=== PATIENT | female | born 1970 | race Caucasian/White ===

== ENCOUNTER 2019-07-15 13:03 | Observation (INO) ==
[2019-07-15] MEDS ORDERED: KETOROLAC 30 MG/ML VIAL IV STA (14:08)
[2019-07-15] MEDS ORDERED: DiphenhydrAMINE HCL 50 MG/ML VIAL IV STA (14:08)
[2019-07-15] MEDS ORDERED: PROCHLORPERAZINE 5 MG/ML 2 ML VIAL IV STA (14:08)
[2019-07-15] MEDS ORDERED: SODIUM CHLORIDE 0.9% 1000ML 1,000 ML IV SCH (14:15)
[2019-07-15 15:09] LABS: Basophils # (auto) 0.04 K/uL (0-0.2); Basophils % (auto) 0.5 %; Eosinophils # (auto) 0.11 K/uL (0-0.5); Eosinophils % (auto) 1.3 %; Hematocrit (blood only) 47.1 % (37-47); Hemoglobin 16.1 g/dL (12.0-16.0); Immature Granulocytes # (auto) 0.03 K/uL (0.00-0.02); Immature Granulocytes % (auto) 0.4 %; Lymphocytes # (auto) 2.46 K/uL (1.2-3.4); Lymphocytes % (auto) 29.7 %; Mean Corpuscular Hgb Conc 34.2 g/dL (32-36); Mean Corpuscular Volume 87.9 fL (80-100); Mean Platelet Volume 10.7 fL (7.4-10.4); Monocytes # (auto) 0.39 K/uL (0.11-0.59); Monocytes % (auto) 4.7 %; Neutrophils # (auto) 5.24 K/uL (1.4-6.5); Neutrophils % (auto) 63.4 %; Platelet Count 310 K/uL (130-400); RDW Coefficient of Variation 12.2 % (11.5-14.5); RDW Standard Deviation 39.1 fL (36.4-46.3); Red Blood Count 5.36 M/uL (4.2-5.4); White Blood Count 8.27 K/uL (4.8-10.8)
[2019-07-15 15:26] LABS: BUN Creatinine Ratio 16.8 (10-20); Calcium 9.7 mg/dl (8.5-10.1); Creatinine Clr Calc Pharmacy 70.4 ml/min; Est GFR (African American) 67.5; Est GFR (Non-African American) 58.3; Potassium 3.6 mmol/L (3.5-5.1)
--- NOTE | 2019-07-15 15:49 | CT Scan Report ---
CT SCAN OF THE BRAIN WITHOUT IV CONTRAST CLINICAL HISTORY: Headache. COMPARISON STUDY: No priors. TECHNIQUE: Unenhanced axial CT scan of the brain is performed from the vertex to the skull base. A d ose lowering technique was utilized adhering to the principles of ALARA. CT DOSE: 614.27 mGy.cm FINDINGS: Brain parenchyma: The brain parenchyma is normal in appearance. There is no hemorrhage, mass effect, or evidence of acute territorial ischemia by CT criteria. Jain-white matter differentiation is preser dino. No extra-axial fluid collection is seen. Ventricles, sulci, cisterns: Normal in configuration. Intracranial vasculature: The visualized intracranial vasculature at the skull base is normal in appe arance. Calvarium: Unremarkable. Sinuses and mastoids: The visualized paranasal sinuses are clear. The mastoid air cells are well pneu matized. Orbits: The bony orbits are grossly intact. IMPRESSION: No acute intracranial abnormality. ACT 112: Negative or not required by law. Electronically signed by: Vincent Kay M.D. 07/15/2019 3:48 PM
[2019-07-15] MEDS ORDERED: MAGNESIUM SULFATE / D5W 1 GM/100 ML BAG IV ONE (16:57)
[2019-07-15] MEDS ORDERED: ACETAMINOPHEN 1,000 MG/100 ML VIAL IV STA (16:59)
[2019-07-15 18:17] LABS: Pregnancy Test, Urine Negative (Negative)
[2019-07-15] MEDS ORDERED: LORazepam 0.5 MG/1 ML VIAL IV STA (18:44)
--- NOTE | 2019-07-15 19:32 | Emergency Department Note ---
Entered by Melida Moyer acting as a scribe for Chriss Byrd DO History of Present Illness General Chief complaint: Headache Stated complaint: EXTREME HEADACHE; HIGH BP History of Present Illness Onset (ago): day(s) 5 Location: head Severity: similar to prior episodes Pain Consistency: + constant Maximum Pain Intensity: 8 Current Pain Intensity: 8 Quality: + constant Relieved By: + none Associated symptoms: + denies other symptoms (denies numbness, tingling, runny nose), + headaches and + other (blurry vision); no cough, no fever/chills and no weakness The patient is a 48 year old female who presents to the Emergency Room with complaints of headache that began on Friday, 5 days ago. She states that her headache starts at the back of her neck and comes up through her head and to her eyes. The patient has a history of intracranial hypertension. She takes Topamax and diamox without improvement. She denies weakness, numbness, or tinging. She complains of intermittent blurry vision in her right eye that started a few days ago. Her last severe headache episode was about a year and a half ago. The patient denies runny nose, cough, and fever. Home Medications Home Medications Medication Instructions Recorded Confirmed Type Diamox 1,000 mg PO BID 07/15/19 07/15/19 History ibuprofen-diphenhydramine cit 2 cap PO HS PRN 07/15/19 07/15/19 History [Advil PM] multivitamin 1 tab PO DAILY 07/15/19 07/15/19 History topiramate [Topamax] 25 mg PO QAM 07/15/19 07/15/19 History topiramate [Topamax] 75 mg PO HS 07/15/19 07/15/19 History Allergies Allergy/AdvReac Type Severity Reaction Status Date / Time No Known Allergies Allergy Unverified 07/15/19 15:50 Past Med/Surg History Medical History Intracranial hypertension Surgical History No pertinent past surgical history Social History Preferred Language: Trinidadian Feels Safe at Home: Yes Smoking Status: Never smoker Review of Systems See HPI for pertinent positives & negatives. and A total of 10 systems reviewed and were otherwise negative Physical Exam Vital Signs Vital Signs - 24 hr 07/15/19 13:23 07/15/19 13:51 07/15/19 13:52 Temperature 36.9 C Temperature Source Oral Pulse Rate 79 81 Pulse Rate [Apical] 80 Pulse Rate from SpO2 Sensor 81 Respiratory Rate 18 17 20 Respiratory Effort / Characteristics Non-Labored Spontaneous Non-Labored Spontaneous Respiratory Depth Normal Normal Respiratory Pattern Regular Blood Pressure 131/96 140/92 Blood Pressure [Right Arm] 140/92 Blood Pressure Mean 107 111 Blood Pressure Mean [Right Arm] 108 Blood Pressure Position Sitting Pulse Oximetry 94 97 96 Oxygen Delivery Method Room Air Room Air Sepsis Recent Fever Within 48 Hours No Sepsis New/Unexplained Change in Mental Status No Sepsis Action Taken by Nursing No Action Required 07/15/19 13:54 07/15/19 14:00 07/15/19 14:01 Temperature Temperature Source Pulse Rate 79 83 86 Pulse Rate [Apical] Pulse Rate from SpO2 Sensor 80 83 87 Respiratory Rate 15 24 19 Respiratory Effort / Characteristics Respiratory Depth Respiratory Pattern Blood Pressure 162/100 H Blood Pressure [Right Arm] Blood Pressure Mean 121 Blood Pressure Mean [Right Arm] Blood Pressure Position Pulse Oximetry 96 96 96 Oxygen Delivery Method Sepsis Recent Fever Within 48 Hours Sepsis New/Unexplained Change in Mental Status Sepsis Action Taken by Nursing 07/15/19 14:30 07/15/19 15:00 07/15/19 15:17 Temperature Temperature Source Pulse Rate 74 76 82 Pulse Rate [Apical] Pulse Rate from SpO2 Sensor Respiratory Rate 15 14 23 Respiratory Effort / Characteristics Respiratory Depth Respiratory Pattern Blood Pressure 134/98 Blood Pressure [Right Arm] Blood Pressure Mean 115 Blood Pressure Mean [Right Arm] Blood Pressure Position Pulse Oximetry Oxygen Delivery Method Sepsis Recent Fever Within 48 Hours Sepsis New/Unexplained Change in Mental Status Sepsis Action Taken by Nursing 07/15/19 15:19 07/15/19 15:30 07/15/19 15:31 Temperature Temperature Source Pulse Rate 74 76 Pulse Rate [Apical] 86 Pulse Rate from SpO2 Sensor Respiratory Rate 18 15 13 Respiratory Effort / Characteristics Non-Labored Respiratory Depth Normal Respiratory Pattern Blood Pressure 126/93 Blood Pressure [Right Arm] 134/98 Blood Pressure Mean 101 Blood Pressure Mean [Right Arm] 110 Blood Pressure Position Pulse Oximetry 95 Oxygen Delivery Method Room Air Sepsis Recent Fever Within 48 Hours Sepsis New/Unexplained Change in Mental Status Sepsis Action Taken by Nursing 07/15/19 15:48 07/15/19 16:00 07/15/19 16:01 Temperature Temperature Source Pulse Rate 71 69 67 Pulse Rate [Apical] Pulse Rate from SpO2 Sensor 71 71 68 Respiratory Rate 16 13 15 Respiratory Effort / Characteristics Respiratory Depth Respiratory Pattern Blood Pressure 115/55 L 110/69 Blood Pressure [Right Arm] Blood Pressure Mean 87 81 Blood Pressure Mean [Right Arm] Blood Pressure Position Pulse Oximetry 93 94 95 Oxygen Delivery Method Sepsis Recent Fever Within 48 Hours Sepsis New/Unexplained Change in Mental Status Sepsis Action Taken by Nursing 07/15/19 16:22 07/15/19 16:30 07/15/19 16:31 Temperature Temperature Source Pulse Rate 85 80 Pulse Rate [Apical] 69 Pulse Rate from SpO2 Sensor 85 78 Respiratory Rate 18 15 19 Respiratory Effort / Characteristics Non-Labored Respiratory Depth Normal Respiratory Pattern Blood Pressure 115/74 Blood Pressure [Right Arm] 110/69 Blood Pressure Mean 84 Blood Pressure Mean [Right Arm] 82 Blood Pressure Position Pulse Oximetry 94 95 96 Oxygen Delivery Method Room Air Sepsis Recent Fever Within 48 Hours Sepsis New/Unexplained Change in Mental Status Sepsis Action Taken by Nursing 07/15/19 17:06 07/15/19 17:11 07/15/19 17:30 Temperature Temperature Source Pulse Rate 75 71 Pulse Rate [Apical] 85 Pulse Rate from SpO2 Sensor Respiratory Rate 17 18 16 Respiratory Effort / Characteristics Respiratory Depth Respiratory Pattern Blood Pressure Blood Pressure [Right Arm] 115/74 Blood Pressure Mean Blood Pressure Mean [Right Arm] 87 Blood Pressure Position Pulse Oximetry 96 Oxygen Delivery Method Room Air Sepsis Recent Fever Within 48 Hours Sepsis New/Unexplained Change in Mental Status Sepsis Action Taken by Nursing 07/15/19 18:00 07/15/19 18:17 07/15/19 19:21 Temperature Temperature Source Pulse Rate 74 71 Pulse Rate [Apical] Pulse Rate from SpO2 Sensor Respiratory Rate 19 14 Respiratory Effort / Characteristics Respiratory Depth Respiratory Pattern Blood Pressure 118/78 Blood Pressure [Right Arm] Blood Pressure Mean 83 Blood Pressure Mean [Right Arm] Blood Pressure Position Pulse Oximetry 96 Oxygen Delivery Method Room Air Room Air Sepsis Recent Fever Within 48 Hours Sepsis New/Unexplained Change in Mental Status Sepsis Action Taken by Nursing GENERAL: Sitting up in bed, wearing gown. alert, well nourished, no distress, non-toxic EYE EXAM: normal conjunctiva, PERRL and EOM's grossly intact OROPHARYNX: no exudate, no erythema, lips, buccal mucosa, and tongue normal and mucous membranes are moist NECK: supple, no nuchal rigidity, no adenopathy, non-tender LUNGS: Clear to auscultation. Normal chest wall mechanics HEART: no murmurs, S1 normal and S2 normal ABDOMEN: abdomen soft, non-tender, normo-active bowel sounds, no masses, no rebound or guarding. BACK: Back is symmetrical on inspection and there is no deformity, no midline tenderness, no CVA tenderness. SKIN: no rashes and no bruising UPPER EXTREMITIES: upper extremities are grossly normal. LOWER EXTREMITIES: No pitting edema. NEURO EXAM: Normal sensorium, cranial nerves II-XII intact, normal speech, no weakness of arms, no weakness of legs. No drift. Finger to nose intact. Gross sensation intact. Heel to camarena intact. Rapid alternating movements of upper extremities intact. Course Course ED COURSE: Vital signs were reviewed and were normal The patients medical record was reviewed The above diagnostic studies were performed and reviewed. ED treatments and interventions as stated above. 1401: The patient was evaluated in room C05. A complete history and physical examination was performed. 1551: I rechecked on the patient, who was still having some pain. 1641: I spoke to Dr. Espitia, neurology, regarding the patient. Wants MRI with contrast, without contrast, and MRB. 1659: I updated the patient and discussed further treatment in the hospital. She confirms that she would be agreeable with staying in the hospital and understands and agrees with the treatment plan. Based on the patients age, coexisting illnesses, exam and lab findings the decision to treat as an inpatient was made. The patient remained stable while under my care. The patient will be evaluated for further management. Administered Medications Discontinued Medications Diphenhydramine HCl (Benadryl) 50 mg IV NOW STA Stop: 07/15/19 14:09 Last Admin: 07/15/19 15:05 Dose: 50 mg Documented by: [id number] Sodium Chloride (Nss 1000ml) 1,000 mls @ 999 mls/hr IV .Q1H1M RL Stop: 07/15/19 15:15 Last Infusion: 07/15/19 16:38 Dose: 0 mls/hr Documented by: [id number] Admin: 07/15/19 15:05 Dose: 999 mls/hr Documented by: [id number] Magnesium Sulfate/Dextrose (Magnesium Sulfate / D5w) 1 gm in 100 mls @ 100 mls/hr IV ONE ONE Stop: 07/15/19 17:56 Last Admin: 07/15/19 18:18 Dose: 100 mls/hr Documented by: [id number] Acetaminophen (Ofirmev) 1,000 mg in 100 mls @ 400 mls/hr IV NOW STA Stop: 07/15/19 17:13 Last Infusion: 07/15/19 18:43 Dose: 0 mls/hr Documented by: [id number] Admin: 07/15/19 18:18 Dose: 400 mls/hr Documented by: [id number] Lorazepam (Ativan) 0.5 mg in 1 mls @ 1 mls/min IV NOW STA Stop: 07/15/19 18:45 Last Admin: 07/15/19 19:02 Dose: 1 mls/min Documented by: [id number] Ketorolac Tromethamine (Toradol) 30 mg IV NOW STA Stop: 07/15/19 14:09 Last Admin: 07/15/19 15:04 Dose: 30 mg Documented by: [id number] Prochlorperazine (Compazine) 10 mg IV NOW STA Stop: 07/15/19 14:09 Last Admin: 07/15/19 15:05 Dose: 10 mg Documented by: [id number] Medical Decision Making Differential Diagnosis Differential diagnosis includes: migraine headache, meningitis, sinusitis, CO exposure, ICH, SAH, infection, tumor, headache, sinus thrombosis, arterial dissection, as well as others were entertained. Medical Records Attestation: I reviewed the patient's medical records. Home Medications Current Medication List: was personally reviewed by me Laboratory Data Attestation: I reviewed the patient's lab results. Result diagrams: 07/15/19 14:54 07/15/19 14:54 Lab Results 07/15/19 07/15/19 07/15/19 Range/Units 13:27 14:54 14:54 WBC 8.27 (4.8-10.8) K/uL RBC 5.36 (4.2-5.4) M/uL Hgb 16.1 H (12.0-16.0) g/dL Hct 47.1 H (37-47) % MCV 87.9 (80-100) fL MCH 30.0 (25-34) pg MCHC 34.2 (32-36) g/dL RDW Std Deviation 39.1 (36.4-46.3) fL RDW Coeff of Lynn 12.2 (11.5-14.5) % Plt Count 310 (130-400) K/uL MPV 10.7 H (7.4-10.4) fL Immature Gran % (Auto) 0.4 % Neut % (Auto) 63.4 % Lymph % (Auto) 29.7 % [place] % (Auto) 4.7 % Eos % (Auto) 1.3 % Baso % (Auto) 0.5 % Immature Gran # (Auto) 0.03 H (0.00-0.02) K/uL Neut # (Auto) 5.24 (1.4-6.5) K/uL Lymph # (Auto) 2.46 (1.2-3.4) K/uL [place] # (Auto) 0.39 (0.11-0.59) K/uL Eos # (Auto) 0.11 (0-0.5) K/uL Baso # (Auto) 0.04 (0-0.2) K/uL Sodium 138 (136-145) mmol/L Potassium 3.6 (3.5-5.1) mmol/L Chloride 109 H (98-107) mmol/L Carbon Dioxide 20 L (21-32) mmol/L Anion Gap 9.0 (3-11) BUN 19 H (7-18) mg/dl Creatinine 1.11 (0.6-1.2) mg/dl Est Cr Clr Drug Dosing 70.4 ml/min Est GFR ( Amer) 67.5 Est GFR (Non-Af Amer) 58.3 BUN/Creatinine Ratio 16.8 (10-20) Glucose 81 (70-99) mg/dl Calcium 9.7 (8.5-10.1) mg/dl Specimen Hemolysis Urine Test Negative (Negative) Imaging Data Radiologist's Impression: Radiology results as stated below per my review and the radiologist's interpretation: CT SCAN OF THE BRAIN WITHOUT IV CONTRAST CLINICAL HISTORY: Headache. COMPARISON STUDY: No priors. TECHNIQUE: Unenhanced axial CT scan of the brain is performed from the vertex to the skull base. A dose lowering technique was utilized adhering to the gabe Douglas. CT DOSE: 614.27 mGy.cm FINDINGS: Brain parenchyma: The brain parenchyma is normal in appearance. There is no hemorrhage, mass effect, or evidence of acute territorial ischemia by CT criteria. Jain-white matter differentiation is preserved. No extra-axial fluid collection is seen. Ventricles, sulci, cisterns: Normal in configuration. Intracranial vasculature: The visualized intracranial vasculature at the skull base is normal in appearance. Calvarium: Unremarkable. Sinuses and mastoids: The visualized paranasal sinuses are clear. The mastoid air cells are well pneumatized. Orbits: The bony orbits are grossly intact. IMPRESSION: No acute intracranial abnormality. ACT 112: Negative or not required by law. Electronically signed by: Vincent Kay M.D. 07/15/2019 3:48 PM Blood Pressure Blood Pressure Findings: Normal blood pressure Blood Pressure Disposition: did not require urgent referral MDM Narrative Patient is a 48-year-old female with a past medical history of intracranial hypertension who follows at L2 to the presents the ER for headache which is been present for the past 5 days severely worsening. She takes 2 g of Diamox and 100 of Topamax a day. Her neuro exam is intact. She does complain of intermittent blurry vision of her right eye. IV was established blood work was obtained. Labs show no significant leukocytosis or anemia. BMP with a CO2 slightly low at 20. was negative. Patient was given IV fluids, Benadryl, Compazine, and Toradol along with magnesium. Limited improvement of her headache. D iscussed with neurology. Recommended MRI with and without contrast as well as MRV. Patient was updated. Also requesting LP. Patient was discussed with the hospitalist after discussion with neurology for additional workup. Impression & Plan Intracranial hypertension, Headache, Blurred vision Discharge Plan Visit Data Chief Complaint: Headache Stated Complaint: EXTREME HEADACHE; HIGH BP ED Provider: Chriss Byrd Discharge Problem: Intracranial hypertension, Headache, Blurred vision Patient Disposition: Admitted As Inpatient Discharge Instructions Interventions: ED Discharge Assessment Last Done: 07/15/19 19:21 Forms Stand Alone Forms: My [facility] Prescriptions Prescriptions: No Action multivitamin Tablet 1 tab PO DAILY RF: 0 topiramate [Topamax] 25 mg Tablet 75 mg PO HS RF: 0 topiramate [Topamax] 25 mg Tablet 25 mg PO QAM RF: 0 ibuprofen-diphenhydramine cit [Advil PM] 200-38 mg Tablet 2 cap PO HS PRN (Reason: Sleep) RF: 0 Diamox 1,000 mg PO BID RF: 0 Referrals Referrals: PCP,NO [Primary Care Provider] - Discharge Problem: Headache Qualifiers: Headache type: unspecified Headache chronicity pattern: unspecified pattern Intractability: intractable Qualified Code(s): R51 - Headache The scribe's documentation has been prepared under my direction and personally reviewed by me in its entirety. I confirm that the note above accurately reflects all work, treatment, procedures, and medical decision making performed by me.
[2019-07-15] MEDS ORDERED: GADOBUTROL 65ML VIAL IV PRN (20:05)
[2019-07-15] MEDS ORDERED: ONDANSETRON INJ 2 MG/ML 2 ML VIAL IV PRN (20:13)
--- NOTE | 2019-07-15 20:16 | Magnetic Resonance Report ---
MR venography head wo con HISTORY: Headache. Blurred vision. Intracranial hypertension. TECHNIQUE: MR venogram of the brain was performed without contrast according to standard departmental protocol. COMPARISON STUDY: Head CT 07/15/2019. FINDINGS: The visualized internal jugular veins, sigmoid sinuses, transverse sinuses, straight sinus, vein of Aime, internal cerebral veins, and superior sagittal vein appear patent. No evidence for du ral venous sinus thrombosis. IMPRESSION: No evidence for dural venous sinus thrombosis. ACT 112: Negative or not required by law. Electronically signed by: Lizandro Mancini M.D. 07/15/2019 8:15 PM
--- NOTE | 2019-07-15 20:22 | Magnetic Resonance Report ---
Brain MRI WITH AND WITHOUT CONTRAST HISTORY: Severe headache. TECHNIQUE: Multiplanar multisequence MRI of the brain was performed both before and after the intrave nous administration of contrast. COMPARISON STUDY: Head CT 07/15/2019. FINDINGS: There are no areas of restricted diffusion to suggest acute infarction. Incidental note is made of a partially empty sella. This could be a normal variant. Otherwise, the midline structures ar e intact.. The paranasal sinuses are clear. The mastoid air cells are clear. The ventricles and sulci are within normal limits for age. There is no mass, hematoma, midline shift. The major vascular flow -voids at the skull base are well maintained. Postcontrast sequences show no areas of abnormal enhanc ement. IMPRESSION: No acute intracranial abnormality. ACT 112: Negative or not required by law. Electronically signed by: Lizandro Mancini M.D. 07/15/2019 8:21 PM
--- NOTE | 2019-07-15 20:29 | History & Physical Report ---
Date of Service July 15, 2019 Assessment & Plan (1) Headache: 28-year-old female with history of idiopathic intracranial hypertension on Diamox and Topamax for medical therapy presenting with 5 days of severe headache, blurry vision in the right eye. Concern for worsening of i ntracranial hypertension versus migraine versus tension headache Observation to medical floor Obtain MRI and MRV Ophthalmology consultation requested LP ordered for tomorrow, opening pressure requested Continue Topamax 75 mg p.o. nightly and 25 mg p.o. every morning Continue Diamox 1000 mg p.o. twice daily Neurology consultation appreciated Present on Admission?: Yes (2) Blurred vision: Most likely secondary to #1 Plan as above Present on Admission?: Yes (3) Intracranial hypertension: Patient presently on Diamox and Topamax. No prior surgical interventions for this issue. -Work-up as above -Ophthalmology neurology consult appreciated Continue Topamax and Diamox Consider Lasix x1 dose F/E/N - NSS x 500mL, monitor electrolytes and replete as needed, low-sodium diet as tolerated Prophylaxislow risk for DVT. IV fluids as above, encourage ambulation Codefull per discussion with patient Dispositionobservation to medical floor History of Present Illness Chief Complaint: Headache Primary Care Provider: NO PCP Sharona Wright is a 48-year-old female with history of idiopathic intracranial hypertension diagnosed 2 years ago presenting with 5 days of severe, persistent headache. Patient reports that she has a headache almost daily. She also has a small blind spot in the right eye which is residual defect from her initial presentation of IIH. Over the last 5 days, however, she reports severe 10 out of 10 constant aching pain located in her posterior neck radiating bandlike to the top of her head and behind her eyes. Blurry vision in her right eye headache wakes her from sleep on occasion. Pain is worse with lying flat. She saw her PCP yesterday and was administered Toradol and she has been taking Advil PM with minimal relief. She denies nausea/vomiting/fevers/chills/trauma. Denies numbness/tingling/weakness. No additional complaints at this time Patient presently following with Dr. Mac of neurology ER course: Tylenol 1 g, Benadryl 50 mg IV, Toradol 30 mg IV, Ativan 0.5 mg IV, magnesium sulfate x1 g IV, prochlorperazine 10 mg IV, normal saline x1 L Neurology contactedrequested MRI with and without contrast, MRV, ophthalmology consultation and lumbar puncture Allergies Allergy/AdvReac Type Severity Reaction Status Date / Time No Known Allergies Allergy Unverified 07/15/19 15:50 Home Medications Home Medications Medication Instructions Recorded Confirmed Type Diamox 1,000 mg PO BID 07/15/19 07/15/19 History ibuprofen-diphenhydramine cit 2 cap PO HS PRN 07/15/19 07/15/19 History [Advil PM] multivitamin 1 tab PO DAILY 07/15/19 07/15/19 History topiramate [Topamax] 25 mg PO QAM 07/15/19 07/15/19 History topiramate [Topamax] 75 mg PO HS 07/15/19 07/15/19 History Past Med/Surg History Medical History (Updated 07/15/19 @ 17:26 by Melida Moyer) Intracranial hypertension Surgical History (Updated 07/15/19 @ 20:15 by Annalisa Boyd DO) History of bladder surgery History of hysterectomy Family History (Updated 07/15/19 @ 20:15 by Annalisa Boyd DO) Other Cancer Diabetes Social History (Updated 07/15/19 @ 20:15 by Annalisa Boyd DO) Preferred Language: Cuban Feels Safe at Home: Yes Smoking Status: Never smoker Hx Alcohol Use: Yes Alcohol Intake Frequency: Holidays/Special Occasions Hx Substance Use: No Review of Systems Review of Systems: All systems reviewed & are unremarkable except as noted in HPI & below Physical Exam Physical Exam: General: patient resting in moderate discomfort but no acute distress,non-toxic in appearance, AA&O x 4 Skin: warm, dry, intact, no rashes or lesions HEENT: NC/AT, PERRL, EOMI, anicteric sclera, conjunctiva without injection, external ear normal to inspection and nontender, nares patent, moist mucus membranes, dentition intact, no oropharyngeal lesions, neck supple, trachea midline, no LAD, no thyromegaly, no JVD, no papilledema appreciated on limited bedside funduscopic exam Heart: +S1/S2, regular, no m/r/g Lungs: equal air entry bilaterally, no rales/rhonchi/wheezes Abd: +BS, soft, NT/ND, no masses/organomegaly/ascites Ext: warm, 2+ pulses in UE/LE bilaterally, no clubbing/cyanosis, vascular hypertrophy of left calf in comparison with right (baseline per patient), no edema Neuro: nonfocal, patient AA&O x 4, speech intact, no facial droop, moving all extremities on command with equal strength 5/5 Results & Data Vital Signs (Past 12 Hours) Vital Signs Temp Pulse Pulse Resp BP BP Pulse Ox 07/15/19 18:17 71 14 118/78 96 07/15/19 18:00 74 19 07/15/19 17:30 71 16 07/15/19 17:11 85 18 115/74 96 07/15/19 17:06 75 17 07/15/19 16:31 80 19 96 07/15/19 16:30 85 15 115/74 95 07/15/19 16:22 69 18 110/69 94 07/15/19 16:01 67 15 95 07/15/19 16:00 69 13 110/69 94 07/15/19 15:48 71 16 115/55 L 93 07/15/19 15:31 76 13 07/15/19 15:30 74 15 126/93 07/15/19 15:19 86 18 134/98 95 07/15/19 15:17 82 23 134/98 07/15/19 15:00 76 14 07/15/19 14:30 74 15 07/15/19 14:01 86 19 162/100 H 96 07/15/19 14:00 83 24 96 07/15/19 13:54 79 15 96 07/15/19 13:52 80 20 140/92 96 07/15/19 13:51 81 17 140/92 97 07/15/19 13:23 36.9 C 79 18 131/96 94 Laboratory Results Lab Results 07/15/19 07/15/19 07/15/19 Range/Units 13:27 14:54 14:54 WBC 8.27 (4.8-10.8) K/uL RBC 5.36 (4.2-5.4) M/uL Hgb 16.1 H (12.0-16.0) g/dL Hct 47.1 H (37-47) % MCV 87.9 (80-100) fL MCH 30.0 (25-34) pg MCHC 34.2 (32-36) g/dL RDW Std Deviation 39.1 (36.4-46.3) fL RDW Coeff of [place] 12.2 (11.5-14.5) % Plt Count 310 (130-400) K/uL MPV 10.7 H (7.4-10.4) fL Immature Gran % (Auto) 0.4 % Neut % (Auto) 63.4 % Lymph % (Auto) 29.7 % [place] % (Auto) 4.7 % Eos % (Auto) 1.3 % Baso % (Auto) 0.5 % Immature Gran # (Auto) 0.03 H (0.00-0.02) K/uL Neut # (Auto) 5.24 (1.4-6.5) K/uL Lymph # (Auto) 2.46 (1.2-3.4) K/uL [place] # (Auto) 0.39 (0.11-0.59) K/uL Eos # (Auto) 0.11 (0-0.5) K/uL Baso # (Auto) 0.04 (0-0.2) K/uL Sodium 138 (136-145) mmol/L Potassium 3.6 (3.5-5.1) mmol/L Chloride 109 H (98-107) mmol/L Carbon Dioxide 20 L (21-32) mmol/L Anion Gap 9.0 (3-11) BUN 19 H (7-18) mg/dl Creatinine 1.11 (0.6-1.2) mg/dl Est Cr Clr Drug Dosing 70.4 ml/min Est GFR ( Amer) 67.5 Est GFR (Non-Af Amer) 58.3 BUN/Creatinine Ratio 16.8 (10-20) Glucose 81 (70-99) mg/dl Calcium 9.7 (8.5-10.1) mg/dl Specimen Hemolysis Urine Test Negative (Negative) Diagnostic Findings CT SCAN OF THE BRAIN WITHOUT IV CONTRAST CLINICAL HISTORY: Headache. COMPARISON STUDY: No priors. TECHNIQUE: Unenhanced axial CT scan of the brain is performed from the vertex to the skull base. A dose lowering technique was utilized adhering to the principles of ALARA. CT DOSE: 614.27 mGy.cm FINDINGS: Brain parenchyma: The brain parenchyma is normal in appearance. There is no hemorrhage, mass effect, or evidence of acute territorial ischemia by CT criteria. Jain-white matter differentiation is preserved. No extra-axial fluid collection is seen. Ventricles, sulci, cisterns: Normal in configuration. Intracranial vasculature: The visualized intracranial vasculature at the skull base is normal in appearance. Calvarium: Unremarkable. Sinuses and mastoids: The visualized paranasal sinuses are clear. The mastoid air cells are well pneumatized. Orbits: The bony orbits are grossly intact. IMPRESSION: No acute intracranial abnormality. ACT 112: Negative or not required by law. Electronically signed by: Vincent Kay M.D. 07/15/2019 3:48 PM Dictated: 07/15/191546 Transcribed: 07/15/191546 MR venography head wo con HISTORY: Headache. Blurred vision. Intracranial hypertension. TECHNIQUE: MR venogram of the brain was performed without contrast according to standard departmental protocol. COMPARISON STUDY: Head CT 07/15/2019. FINDINGS: The visualized internal jugular veins, sigmoid sinuses, transverse sinuses, straight sinus, vein of Aime, internal cerebral veins, and superior sagittal vein appear patent. No evidence for dural venous sinus thrombosis. IMPRESSION: No evidence for dural venous sinus thrombosis. ACT 112: Negative or not required by law. Electronically signed by: Lizandro Mancini M.D. 07/15/2019 8:15 PM Code Status & VTE Plan Code Status Full code PG Care Time/CCT Total # of Minutes Spent Total Time Spent with Patient: Total time spent is greater than 50% in coordination of care (as documented) at patient's floor/unit and/or counseling patient: Coding Level of Care Code 34648 Initial Inpt Care Lvl 2 Diagnoses Headache R51 Headache chronicity pattern: unspecified pattern Headache type: unspecified Intractability: intractable Blurred vision H53.8 Intracranial hypertension G93.2 (1) Headache Headache chronicity pattern: unspecified pattern Headache type: unspecified Intractability: intractable Qualified Code(s): R51 - Headache
[2019-07-15] MEDS ORDERED: IBUPROFEN 200 MG TAB PO PRN (21:14)
[2019-07-15] MEDS: SODIUM CHLORIDE 0.9% 500 ML IV SCH (21:26)
[2019-07-15] MEDS: TOPIRAMATE 25 MG TAB PO SCH (21:27)
[2019-07-15] MEDS: acetaZOLAMIDE 500 MG CAPCR PO SCH (21:55)
[2019-07-16] MEDS: SODIUM CHLORIDE 0.9% 500 ML IV SCH ×4 (00:51→17:06)
[2019-07-16] MEDS: acetaZOLAMIDE 500 MG CAPCR PO SCH ×2 (08:28→20:26)
[2019-07-16] MEDS: TOPIRAMATE 25 MG TAB PO SCH ×2 (08:28→20:25)
[2019-07-16 09:41] LABS: BUN Creatinine Ratio 16.4 (10-20); Calcium 8.6 mg/dl (8.5-10.1); Est GFR (African American) 68.3; Est GFR (Non-African American) 58.9; Potassium 3.7 mmol/L (3.5-5.1)
[2019-07-16 09:47] LABS: Hematocrit (blood only) 42.3 % (37-47); Mean Corpuscular Hemoglobin 29.8 pg (25-34); Mean Corpuscular Hgb Conc 33.1 g/dL (32-36); Mean Platelet Volume 10.8 fL (7.4-10.4); Platelet Count 289 K/uL (130-400); RDW Coefficient of Variation 12.2 % (11.5-14.5); White Blood Count 5.73 K/uL (4.8-10.8)
[2019-07-16] MEDS: ACETAMINOPHEN 325 MG TAB PO PRN (12:46)
--- NOTE | 2019-07-16 13:10 | Hospitalist Progress Note ---
Date of Service July 16, 2019 Assessment & Plan (1) Headache: - Presented with headache with history of idiopathic intracranial hypertension -- concern for migraine vs. worsening underlying diagnosis vs. tension headache. - MRI and MRV both negative. - Ophthalmology and neurology both consulted. - Plan for LP this afternoon - opening pressure requested. - Continue Topamax 75 mg qhs, 25 mg qAM; continue Diamox 1000 mg BID. - Tylenol and Advil prn mild pain. (2) Blurred vision: - Likely related to issue as noted above. (3) Intracranial hypertension: - Continue Diamox and Topamax as prescribed. - Ophthalmology and neurology consulted. Dispo: Med/surg; neuro consult and LP pending. Admission and Anticipated Discharge Date Admission Date: July 15, 2019 Subjective Pt. has a headache this morning -- rated as a 5-6/10 on pain scale. Headache temporarily improved overnight then increased again this morning. Is located on posterior head during rounds. Denies associated vision changes, nausea/vomiting, chest pain, SOB. Neuro consult pending; will also complete lumbar puncture this afternooon. Review of Systems Review of Systems: All systems reviewed & are unremarkable except as noted in HPI & below Constitutional: + fatigue and + weakness; no fever, no chills and no anorexia Respiratory: no cough, no dyspnea and no dyspnea on exertion Cardiovascular: no chest pain, no palpitations and no edema Gastrointestinal: no abdominal pain, no nausea and no constipation Genitourinary: no difficulty urinating Musculoskeletal: no back pain and no joint pain Integumentary: no non-healing lesions Neurologic: + headache(s) Physical Exam Physical Exam: General: Resting comfortably HEENT: NC/AT; PERRLA with EOMI; [place] conjunctiva, MMM. No erythema of posterior pharynx Neck: Supple and nontender Cardiac: RRR Lungs: CTA bilaterally Abdomen: Bowel normoactive X 4; Nontender to palpation Extremities: Warm. No edema present Neuro: No focal weakness Skin: No rash Results & Data ([facility]) Vital Signs (Past 12 Hours) Vital Signs Temp Pulse Resp BP Pulse Ox 07/16/19 07:17 36.5 C 67 20 107/72 95 Laboratory Results 07/16/19 07/16/19 07/15/19 Range/Units 09:00 09:00 14:54 WBC 5.73 (4.8-10.8) K/uL RBC 4.70 (4.2-5.4) M/uL Hgb 14.0 (12.0-16.0) g/dL Hct 42.3 (37-47) % MCV 90.0 (80-100) fL MCH 29.8 (25-34) pg MCHC 33.1 (32-36) g/dL RDW Std Deviation 40.0 (36.4-46.3) fL RDW Coeff of Lynn 12.2 (11.5-14.5) % Plt Count 289 (130-400) K/uL MPV 10.8 H (7.4-10.4) fL Immature Gran % (Auto) % Neut % (Auto) % Lymph % (Auto) % [place] % (Auto) % Eos % (Auto) % Baso % (Auto) % Immature Gran # (Auto) (0.00-0.02) K/uL Neut # (Auto) (1.4-6.5) K/uL Lymph # (Auto) (1.2-3.4) K/uL [place] # (Auto) (0.11-0.59) K/uL Eos # (Auto) (0-0.5) K/uL Baso # (Auto) (0-0.2) K/uL Sodium 139 138 (136-145) mmol/L Potassium 3.7 3.6 (3.5-5.1) mmol/L Chloride 112 H 109 H (98-107) mmol/L Carbon Dioxide 22 20 L (21-32) mmol/L Anion Gap 5.0 9.0 (3-11) BUN 18 19 H (7-18) mg/dl Creatinine 1.10 1.11 (0.6-1.2) mg/dl Est Cr Clr Drug Dosing 71.0 70.4 ml/min Est GFR ( Amer) 68.3 67.5 Est GFR (Non-Af Amer) 58.9 58.3 BUN/Creatinine Ratio 16.4 16.8 (10-20) Glucose 118 H 81 (70-99) mg/dl Calcium 8.6 9.7 (8.5-10.1) mg/dl Specimen Hemolysis Urine Test (Negative) 07/15/19 07/15/19 Range/Units 14:54 13:27 WBC 8.27 (4.8-10.8) K/uL RBC 5.36 (4.2-5.4) M/uL Hgb 16.1 H (12.0-16.0) g/dL Hct 47.1 H (37-47) % MCV 87.9 (80-100) fL MCH 30.0 (25-34) pg MCHC 34.2 (32-36) g/dL RDW Std Deviation 39.1 (36.4-46.3) fL RDW Coeff of [place] 12.2 (11.5-14.5) % Plt Count 310 (130-400) K/uL MPV 10.7 H (7.4-10.4) fL Immature Gran % (Auto) 0.4 % Neut % (Auto) 63.4 % Lymph % (Auto) 29.7 % [place] % (Auto) 4.7 % Eos % (Auto) 1.3 % Baso % (Auto) 0.5 % Immature Gran # (Auto) 0.03 H (0.00-0.02) K/uL Neut # (Auto) 5.24 (1.4-6.5) K/uL Lymph # (Auto) 2.46 (1.2-3.4) K/uL [place] # (Auto) 0.39 (0.11-0.59) K/uL Eos # (Auto) 0.11 (0-0.5) K/uL Baso # (Auto) 0.04 (0-0.2) K/uL Sodium (136-145) mmol/L Potassium (3.5-5.1) mmol/L Chloride (98-107) mmol/L Carbon Dioxide (21-32) mmol/L Anion Gap (3-11) BUN (7-18) mg/dl Creatinine (0.6-1.2) mg/dl Est Cr Clr Drug Dosing ml/min Est GFR ( Amer) Est GFR (Non-Af Amer) BUN/Creatinine Ratio (10-20) Glucose (70-99) mg/dl Calcium (8.5-10.1) mg/dl Specimen Hemolysis Urine Test Negative (Negative) PG Care Time/CCT Total # of Minutes Spent Total Time Spent with Patient: Total time spent is greater than 50% in coordination of care (as documented) at patient's floor/unit and/or counseling patient: Coding Level of Care Code 27199 Subseq Hosp Care Lvl 2 Diagnoses Headache R51 Headache chronicity pattern: unspecified pattern Headache type: unspecified Intractability: intractable Blurred vision H53.8 Intracranial hypertension G93.2 (1) Headache Headache chronicity pattern: unspecified pattern Headache type: unspecified Intractability: intractable Qualified Code(s): R51 - Headache
[2019-07-16] MEDS ORDERED: IBUPROFEN 200 MG TAB PO PRN (13:23)
--- NOTE | 2019-07-16 14:22 | Fluoroscopy Report ---
FLUOROSCOPIC GUIDED LUMBAR PUNCTURE CLINICAL HISTORY: Idiopathic intracranial hypertension. PROCEDURE: The risks, benefits, and alternatives to the procedure is discussed with the patient who v oiced understanding. Written informed consent was obtained. The patient was placed prone on the fluor oscopy table. The lower back was prepped and draped in the usual sterile fashion. 1% lidocaine was us ed for local anesthesia. A 22-gauge spinal needle was inserted into the L3-L4 interlaminar space, and OB pressures were assessed, approximately 14 cc of clear colorless cerebrospinal fluid was removed. A single spot fluoroscopic image was saved. The patient tolerated the procedure well. There were no i mmediate complications. The patient was then returned the medical floor for further observation. Fluoroscopy time: 0.2 minutes Opening pressure: 25 cm of water IMPRESSION: Fluoroscopic guided lumbar puncture with removal of approximately 14 cc of cerebrospinal fluid. There were no immediate complications. ACT 112: Negative or not required by law. Electronically signed by: Vincent Kay M.D. 07/16/2019 2:21 PM
[2019-07-16 15:02] LABS: Total Protein CSF 42.5 mg/dl (15-45)
[2019-07-16 15:19] LABS: Appearance CSF Clear; CSF Count Tube # 3; CSF Xanthrochromic No xanthochromia; Color CSF Colorless; Red Blood Cell CSF (A) 7 /uL (0-); Red Blood Cell CSF (B) 4 /uL (0-); White Blood Cell CSF (A) 0 /uL (0-5); White Blood Cell CSF (B) 0 /uL (0-5)
--- NOTE | 2019-07-16 17:03 | Neurology Consultation ---
Date of Consultation July 16, 2019 Assessment & Plan (1) Chronic migraine: Sharona Wright is a 48-year-old woman with past medical history of migraines, IIH and obesity who presents to [facility] with worsening headaches. # IIH: Her opening pressure is at the upper limit of normal, however she had the pressure taken by waiting on her stomach instead of the left lateral decubitus position which could slightly elevate her pressure. She does have optic disc edema on examination more so in the right eye, so cannot rule out active IIH at this time. -Recommend ophthalmology consult for formal visual field testing and to confirm optic disc edema -If optic disc edema confirmed, she will need transfer to higher level of care for evaluation by neurosurgery for possible shunt placement given concern for her vision. She is already maxed out on Diamox and is on Topamax which can be increased further but is not likely to do too much more for the intracranial hypertension. #Chronic migraine complicated by medication overuse headache: This appears to be the more likely diagnosis to her presentation given that she is taking Tylenol, ibuprofen or Excedrin Migraine [id number] for at least the last month. -Would recommend starting IV fluids as well as the following migraine cocktail: Toradol/Benadryl/Reglan every 8 hours scheduled -Would also give Depakote 500 mg IV every 8 hours x3 doses -Would also give magnesium 1 g every 12 hours x2 doses -Would obtain an EKG and consider giving DHE protocol while inpatient to try to break the current headache cycle -Would also recommend starting Zyprexa 2.5 mg nightly x5 days as a cycle breaker (this could be done on discharge if not being transferred) -Her baseline headache intensity is 6-8, would recommend discharge at that point as we would unlikely be able to get her headache intensity less than that and that it will be a slow outpatient process (this is assuming that IIH is not confirmed by ophtho) Thank you for this interesting consult. Plan of care discussed with primary team. Please call or text with any questions. (2) Intracranial hypertension: (3) Medication overuse headache: History of Present Illness Attending Physician: Armando Sweet, DO History of Present Illness Sharona Wright is a 48-year-old woman with past medical history of migraines, IIH and obesity who presents to [facility] with worsening headaches. She reports that she has a long history of migraines that would be unilateral, severe in intensity, associated nausea/vomiting/photophobia/phonophobia, that would last for several hours and that would usually respond to taking Imitrex. Up until about 2 years ago, she would only get these headaches intermittently. Then starting around 2 years ago, she reports she had any kind of type of headache that would start in the occipital region and radiate forward to the frontal region in the retro-orbital region. This headache did not have nausea or vomiting but would have photophobia and phonophobia, it would be severe in intensity described like a "strong pressure". She was seen Dr. Mac at [facility] for these headaches and worked up there with the diagnosis of IH. She was started on Diamox and Topamax (current dose Diamox 1000 mg twice daily, Topamax 25 mg/75 mg). She reports that she was also told by him at one point that she needed to have Botox for her worsening headaches however she refused to have this done. Denies ever being on any other preventive medications. She reports that she has been taking ibuprofen, Tylenol or Excedrin Migraine at least 4 to 5 days/week until about 1 month ago when her headaches got much worse, after which time she has been taking these [id number] since then. In the ED yesterday, her vitals are unremarkable. Labs show WBC 8.27, hemoglobin 16.1, platelets 310, creatinine 1.11, glucose 81. She had an MRI of the brain which per independent review shows a partially empty sella, no flattening of the globes, mild tortuosity of the optic nerves (right more than left). She also had an MRV done that shows no cerebral venous sinus thrombosis. No tumors or other mass lesions that could be causing intracranial hypertension were noted. She had a lumbar puncture earlier today with opening pressure of 25, studies otherwise pending. She reports that her current headache severity is 6 out of 10 and is similar to her prior headaches that she has been having for at least the last month. Allergies Allergy/AdvReac Type Severity Reaction Status Date / Time No Known Allergies Allergy Unverified 07/15/19 15:50 Home Medications Home Medications Medication Instructions Recorded Confirmed Type Diamox 1,000 mg PO BID 07/15/19 07/15/19 History ibuprofen-diphenhydramine cit 2 cap PO HS PRN 07/15/19 07/15/19 History [Advil PM] multivitamin 1 tab PO DAILY 07/15/19 07/15/19 History topiramate [Topamax] 25 mg PO QAM 07/15/19 07/15/19 History topiramate [Topamax] 75 mg PO HS 07/15/19 07/15/19 History acetaminophen [Mapap 650 mg PO Q6H PRN #1 tab 07/16/19 Rx (acetaminophen)] diphenhydramine HCl [Benadryl] 25 mg PO Q6H PRN 1 Days #1 cap 07/16/19 Rx ibuprofen 600 mg PO Q8H PRN #1 cap 07/16/19 Rx Patient History Medical History (Updated 07/16/19 @ 17:10 by Alejandrina Espitia MD) Intracranial hypertension Surgical History (Updated 07/15/19 @ 20:15 by Annalisa Boyd DO) History of bladder surgery History of hysterectomy Family History (Updated 07/15/19 @ 20:15 by Annalisa Boyd DO) Other Cancer Diabetes Social History (Updated 07/15/19 @ 20:15 by Annalisa Boyd DO) Preferred Language: Armenian Senior Compensation Analyst Required: No Beliefs That Will Affect Care: None Current Living Situation: Spouse and Family Other Information That Helps Us Care for You: No Feels Safe at Home: Yes Safety Concerns: Feels Safe At This Time Smoking Status: Never smoker Do You Dip or Chew Tobacco: No ; Hx Alcohol Use: Yes Alcohol type: beer Alcohol Intake Frequency: Holidays/Special Occasions Hx Substance Use: No Review of Systems Review of Systems: 14 point review of systems completed and negative except as in HPI. Physical Exam Physical Exam: General Exam: GEN: NAD, sitting in chair. HEENT: No conjunctival injection, no rhinorrhea. CV: RRR, no peripheral edema PULM: Nonlabored respirations on room air. Neuro Exam: MS: Awake and Alert. Oriented to person, place, and date. Speech fluent and appropriate without dysarthria or paraphasic errors. Language intact including naming, comprehension, repetition. Cognition and memory grossly intact. Attention intact. No neglect. CN: Visual del cid full. No extinction to double simultaneous stimuli. + optic disc edema on fundoscopic exam. PERRLA OU. EOMI without nystagmus. Facial sensation intact to LT. Facial muscles full and symmetric. Hearing intact to conversation. Uvula midline with symmetric palatal elevation. Shoulder shrug normal. Tongue midline. MOTOR: Normal bulk and tone. No pronator drift. BUE strength 5/5 at deltoids, biceps, triceps, wrist flexors and extensors, and hand grasp bilaterally. BLE strength 5/5 at iliopsoas, hamstrings, quadriceps, tibialis anterior, and gastrocnemius bilaterally. REFLEXES: 2+ at biceps, triceps, brachioradialis, patella and Achilles bilaterally. Flexor plantar responses bilaterally. SENSORY: Intact to LT without extinction to double simultaneous stimuli. Vibration and pinprick intact throughout. COORDINATION: No dysmetria or ataxia on [id number] and [id number] bilaterally. Normal Mery bilaterally. GAIT: Deferred given that she just got back from her LP Results & Data Vital Signs (Past 12 Hours) Vital Signs Temp Pulse Resp BP BP Pulse Ox 07/16/19 16:28 36.8 C 75 18 129/78 98 07/16/19 15:56 36.9 C 69 20 134/83 69 L 07/16/19 15:08 36.8 C 71 16 110/75 95 07/16/19 07:17 36.5 C 67 20 107/72 95 PG Care Time/CCT Total # of Minutes Spent Total Time Spent with Patient: Total time spent is greater than 50% in coordination of care (as documented) at patient's floor/unit and/or counseling patient: Coding Level of Care Code 54760 Inpt Consult Level 5 Diagnoses Chronic migraine G43.709 Intracranial hypertension G93.2 Medication overuse headache G44.40
[2019-07-16] MEDS ORDERED: MAGNESIUM SULFATE / D5W 1 GM/100 ML BAG IV ONE (17:45)
[2019-07-16] MEDS: SODIUM CHLORIDE 0.9% 1000ML 1,000 ML IV SCH (17:56)
[2019-07-16] MEDS: DiphenhydrAMINE HCL 50 MG/ML VIAL IV SCH (18:12)
[2019-07-16] MEDS: KETOROLAC 30 MG/ML VIAL IV SCH (18:14)
--- NOTE | 2019-07-16 18:15 | Consultation Report ---
DATE OF CONSULTATION: 07/16/2019 ADDENDUM After clearance from neurology, I sat the patient up for 4 minutes to do an anterior segment and posterior segment slit lamp exam. Her anterior segment was clear and normal in both eyes. Her optic disc in the left eye was completely normal. On the right eye, she may have a slight hint of edema starting of the nasal optic disc, but otherwise looked completely normal. There was no vessel obscuration of the right disc so it is hard to senior medical director whether or not what I am seeing is the start of something or just normal for her. I recommended to her that she have an outpatient ophthalmology visit with myself upon discharge for followup visual field from the one she had previously from her last bout as well as further testing and follow up. It is my pleasure to participate in the care of your patient. MIRTA
[2019-07-16] MEDS: METOCLOPRAMIDE HCL INJ 5 MG/ML 2 ML VIAL IV SCH (18:17)
--- NOTE | 2019-07-16 18:24 | Consultation Report ---
DATE OF CONSULTATION: 07/16/2019 REASON FOR CONSULTATION: History of idiopathic intracranial hypertension with blurred vision, right eye greater than the left and severe headaches over several days. The patient reports a history of idiopathic intracranial hypertension with the first episode being approximately a year and a half ago, presented to the Emergency Room last night with severe headaches for 5 days and more blurry vision in the right eye. She states the right eye has had a history of a blind spot in It since her first bout of idiopathic intracranial hypertension. She had a lumbar puncture this afternoon with an opening pressure of 25. Her ophthalmic history is only significant for the idiopathic intracranial hypertension, otherwise known as pseudotumor cerebri. On examination, her pupils are equal, round and reactive to light. Her visual acuity with her reading glasses on with a near card was 20/50 in the right eye and 20/30 with the left. Her extraocular movements were intact and full in both eyes. Her globes were soft to palpation. The patient has to lay flat for the next hour and a half, so I was unable to examine her eyes otherwise. I will be stopping back again later this evening to take a look at her optic nerves. It is my pleasure to participate in the care of your patient.
[2019-07-16] MEDS: VALPROATE SOD 500 MG in DEXTROSE 5% 50 ML IV SCH (19:12)
[2019-07-16] MEDS: OLANZAPINE 2.5 MG TAB PO SCH (20:24)
[2019-07-17] MEDS: DiphenhydrAMINE HCL 50 MG/ML VIAL IV SCH ×2 (01:42→09:55)
[2019-07-17] MEDS: METOCLOPRAMIDE HCL INJ 5 MG/ML 2 ML VIAL IV SCH ×3 (01:43→17:59)
[2019-07-17] MEDS: KETOROLAC 30 MG/ML VIAL IV SCH ×2 (01:45→09:58)
[2019-07-17] MEDS: VALPROATE SOD 500 MG in DEXTROSE 5% 50 ML IV SCH ×2 (03:33→10:05)
[2019-07-17] MEDS: SODIUM CHLORIDE 0.9% 1000ML 1,000 ML IV SCH (03:38)
[2019-07-17] MEDS: TOPIRAMATE 25 MG TAB PO SCH ×2 (07:55→21:44)
[2019-07-17] MEDS: acetaZOLAMIDE 500 MG CAPCR PO SCH ×2 (07:56→21:44)
[2019-07-17] MEDS ORDERED: MAGNESIUM SULFATE / D5W 1 GM/100 ML BAG IV ONE (08:00)
[2019-07-17 08:02] LABS: Hematocrit (blood only) 42.2 % (37-47); Hemoglobin 13.7 g/dL (12.0-16.0); Mean Corpuscular Hemoglobin 29.6 pg (25-34); Mean Corpuscular Hgb Conc 32.5 g/dL (32-36); Mean Corpuscular Volume 91.1 fL (80-100); Mean Platelet Volume 10.8 fL (7.4-10.4); Platelet Count 259 K/uL (130-400); RDW Coefficient of Variation 12.3 % (11.5-14.5); RDW Standard Deviation 41.2 fL (36.4-46.3); Red Blood Count 4.63 M/uL (4.2-5.4); White Blood Count 5.53 K/uL (4.8-10.8)
[2019-07-17 08:31] LABS: BUN Creatinine Ratio 15.9 (10-20); Calcium 8.3 mg/dl (8.5-10.1); Creatinine Clr Calc Pharmacy 80.5 ml/min; Est GFR (African American) 79.5; Est GFR (Non-African American) 68.6; Potassium 4.1 mmol/L (3.5-5.1)
[2019-07-17] MEDS ORDERED: DEXTROSE 5% 500 ML IV SCH (09:00)
[2019-07-17] MEDS: ACETAMINOPHEN 325 MG TAB PO PRN (09:07)
[2019-07-17] MEDS: DIHYDROERGOTAMINE MESYLATE 1 MG/ML VIAL IM SCH ×2 (10:44→17:59)
--- NOTE | 2019-07-17 11:23 | Neurology Progress Note ---
Date of Service July 17, 2019 Assessment & Plan (1) Chronic migraine: Sharona Wright is a 48-year-old woman with past medical history of migraines, IIH and obesity who presents to [facility] with worsening headaches. # IIH: Her opening pressure is at the upper limit of normal, however she had the pressure taken while lying on her stomach instead of the left lateral decubitus position which could slightly elevate her pressure. She does have optic disc edema on examination in the right eye, so cannot 100% rule out active IIH at this time. - follow up outpatient with ophtho for formal visual field testing - if she has new/active optic disc edema, would probably repeat LP in #Chronic migraine complicated by medication overuse headache: This appears to be the more likely diagnosis to her presentation given that she is taking Tylenol, ibuprofen or Excedrin Migraine [id number] for at least the last month. Baseline EKG normal. - begin treatment with DHE as follows: - check UDS, Mg and Phos levels - begin DHE protocol: 0.5 mg initial dose, if tolerates, begin 1mg q8h (up to 5 doses). Pre-treat with 4mg IV zofran or reglan 30 minutes prior to DHE -Would also recommend starting Zyprexa 2.5 mg nightly x5 days as a cycle breaker (continue on discharge) -Her baseline headache intensity is 6-8, would recommend discharge at that point as we would unlikely be able to get her headache intensity less than that and that it will be a slow outpatient process Thank you for this interesting consult. Plan of care discussed with primary team. Please call or text with any questions. (2) Intracranial hypertension: (3) Medication overuse headache: Subjective NAEs overnight. Continues to have a 6-7/10 headache this morning despite receiving several doses of IV migraine cocktail/magnesium/depakote overnight. Discussed with her the options going forward and the results of ophtho, discussing that her current headache is most likely 2/2 medication overuse. Review of Systems Review of Systems: 14 point review of systems completed and negative except as in HPI. Physical Exam Physical Exam: General Exam: GEN: NAD, sitting in chair. HEENT: No conjunctival injection, no rhinorrhea. CV: RRR, no peripheral edema PULM: Nonlabored respirations on room air. Neuro Exam: MS: Awake and Alert. Oriented to person, place, and date. Speech fluent and appropriate without dysarthria or paraphasic errors. Language intact including naming, comprehension, repetition. Cognition and memory grossly intact. Attention intact. No neglect. CN: Visual del cid full. No extinction to double simultaneous stimuli. + optic disc edema on fundoscopic exam. PERRLA OU. EOMI without nystagmus. Facial sensation intact to LT. Facial muscles full and symmetric. Hearing intact to conversation. Uvula midline with symmetric palatal elevation. Shoulder shrug normal. Tongue midline. MOTOR: Normal bulk and tone. No pronator drift. BUE strength 5/5 at deltoids, biceps, triceps, wrist flexors and extensors, and hand grasp bilaterally. BLE strength 5/5 at iliopsoas, hamstrings, quadriceps, tibialis anterior, and gastrocnemius bilaterally. REFLEXES: 2+ at biceps, triceps, brachioradialis, patella and Achilles bilaterally. Flexor plantar responses bilaterally. SENSORY: Intact to LT without extinction to double simultaneous stimuli. Vibration and pinprick intact throughout. COORDINATION: No dysmetria or ataxia on [id number] and iwad-ms-[id number] bilaterally. Normal Mery bilaterally. GAIT: Deferred given that she just got back from her LP Results & Data Vital Signs (Past 12 Hours) Vital Signs Temp Pulse Resp BP BP Pulse Ox 07/17/19 07:21 36.6 C 74 18 130/81 97 07/16/19 23:54 36.8 C 64 20 101/70 95 Laboratory Results Laboratory Results - last 24 hr 07/16/19 07/16/19 07/17/19 14:05 14:05 07:03 WBC 5.53 RBC 4.63 Hgb 13.7 Hct 42.2 MCV 91.1 MCH 29.6 MCHC 32.5 RDW Std Deviation 41.2 RDW Coeff of Lynn 12.3 Plt Count 259 MPV 10.8 H Sodium Potassium Chloride Carbon Dioxide Anion Gap BUN Creatinine Est Cr Clr Drug Dosing Est GFR ( Amer) Est GFR (Non-Af Amer) BUN/Creatinine Ratio Glucose Calcium CSF Appearance Clear CSF Color Colorless Xanthrochromic No xanthochromia CSF WBC 0 CSF RBC 7 CSF Cell Count Tube # 3 CSF Chemistry Tube # 1 CSF Glucose 52 CSF Total Protein 42.5 07/17/19 07:03 WBC RBC Hgb Hct MCV MCH MCHC RDW Std Deviation RDW Coeff of Lynn Plt Count MPV Sodium 143 Potassium 4.1 Chloride 121 H Carbon Dioxide 18 L Anion Gap 5.0 BUN 15 Creatinine 0.97 Est Cr Clr Drug Dosing 80.5 Est GFR ( Amer) 79.5 Est GFR (Non-Af Amer) 68.6 BUN/Creatinine Ratio 15.9 Glucose 76 Calcium 8.3 L CSF Appearance CSF Color Xanthrochromic CSF WBC CSF RBC CSF Cell Count Tube # CSF Chemistry Tube # CSF Glucose CSF Total Protein PG Care Time/CCT Total # of Minutes Spent Total Time Spent with Patient: Total time spent is greater than 50% in coordination of care (as documented) at patient's floor/unit and/or counseling patient: Coding Level of Care Code 49495 Subseq Hosp Care Lvl 3 Diagnoses Chronic migraine G43.709 Intracranial hypertension G93.2 Medication overuse headache G44.40
--- NOTE | 2019-07-17 12:32 | Hospitalist Progress Note ---
Date of Service July 17, 2019 Assessment & Plan (1) Headache: - Presented with headache with history of idiopathic intracranial hypertension -- concern for migraine vs. worsening IIH vs. tension headache. - MRI and MRV were both negative. - S/p LP on 07/16, opening pressure was 25 cm (?accuracy due to position during procedure); CSF prelim results were negative. - Ophthalmology consulted, had mild disc edema on right side - recommend follow up as outpatient. - Neuro consulted, appreciate input. Headache is likely related to medication overuse. - Continue Topamax 75 mg qhs, 25 mg qAM; continue Diamox 1000 mg BID. - Start DHE protocol, will complete 3 mg subQ over next 24 hours; EKG was negative for evidence of ischemia/prior MS. - Continue Zyprexa 2.5 mg qhs x 5 days. - Received Toradol/Reglan/Benadryl q8hr and Depakote IV q8hr x 24 hours, now completed. - Urine drug screen pending collection. - Completely AVOID use of Tylenol/Ibuprofen -- will lead to increased headaches. (2) Blurred vision: - Likely related to issue as noted above, now resolved. (3) Intracranial hypertension: - Continue Diamox and Topamax as prescribed. - Ophthalmology and neurology consulted. Dispo: Med/surg; discharge likely on Friday pending improvement in headaches and completion of DHE protocol. Admission and Anticipated Discharge Date Admission Date: July 15, 2019 Subjective Pt. reports headache is rated as a 7/10 this morning, no improvement with treatment overnight. Denies visual changes, nausea/vomiting. Will start DHE protocol this morning per neuro recs. Review of Systems Review of Systems: All systems reviewed & are unremarkable except as noted in HPI & below Constitutional: no fever, no chills, no fatigue and no weakness Respiratory: no cough, no dyspnea and no dyspnea on exertion Cardiovascular: no chest pain, no palpitations and no edema Gastrointestinal: no abdominal pain, no nausea, no vomiting and no constipation Genitourinary: no difficulty urinating Musculoskeletal: no back pain and no joint pain Integumentary: no non-healing lesions Neurologic: + headache(s) Physical Exam Physical Exam: General: Resting comfortably HEENT: NC/AT; PERRLA with EOMI; [place] conjunctiva, MMM. No erythema of posterior pharynx Neck: Supple and nontender Cardiac: RRR Lungs: CTA bilaterally Abdomen: Bowel normoactive X 4; Nontender to palpation Extremities: Warm. No edema present Neuro: No focal weakness Skin: No rash Results & Data ([facility]) Vital Signs (Past 12 Hours) Vital Signs Temp Pulse Resp BP Pulse Ox 07/17/19 07:21 36.6 C 74 18 130/81 97 Laboratory Results 07/17/19 07/17/19 07/16/19 Range/Units 07:03 07:03 14:05 WBC 5.53 (4.8-10.8) K/uL RBC 4.63 (4.2-5.4) M/uL Hgb 13.7 (12.0-16.0) g/dL Hct 42.2 (37-47) % MCV 91.1 (80-100) fL MCH 29.6 (25-34) pg MCHC 32.5 (32-36) g/dL RDW Std Deviation 41.2 (36.4-46.3) fL RDW Coeff of Lynn 12.3 (11.5-14.5) % Plt Count 259 (130-400) K/uL MPV 10.8 H (7.4-10.4) fL Sodium 143 (136-145) mmol/L Potassium 4.1 (3.5-5.1) mmol/L Chloride 121 H (98-107) mmol/L Carbon Dioxide 18 L (21-32) mmol/L Anion Gap 5.0 (3-11) BUN 15 (7-18) mg/dl Creatinine 0.97 (0.6-1.2) mg/dl Est Cr Clr Drug Dosing 80.5 ml/min Est GFR ( Amer) 79.5 Est GFR (Non-Af Amer) 68.6 BUN/Creatinine Ratio 15.9 (10-20) Glucose 76 (70-99) mg/dl Calcium 8.3 L (8.5-10.1) mg/dl CSF Appearance CSF Color Xanthrochromic CSF WBC (0-5) /uL CSF RBC (0-) /uL CSF Cell Count Tube # CSF Chemistry Tube # 1 CSF Glucose 52 (40-70) mg/dl CSF Total Protein 42.5 (15-45) mg/dl 07/16/19 Range/Units 14:05 WBC (4.8-10.8) K/uL RBC (4.2-5.4) M/uL Hgb (12.0-16.0) g/dL Hct (37-47) % MCV (80-100) fL MCH (25-34) pg MCHC (32-36) g/dL RDW Std Deviation (36.4-46.3) fL RDW Coeff of Lynn (11.5-14.5) % Plt Count (130-400) K/uL MPV (7.4-10.4) fL Sodium (136-145) mmol/L Potassium (3.5-5.1) mmol/L Chloride (98-107) mmol/L Carbon Dioxide (21-32) mmol/L Anion Gap (3-11) BUN (7-18) mg/dl Creatinine (0.6-1.2) mg/dl Est Cr Clr Drug Dosing ml/min Est GFR ( Amer) Est GFR (Non-Af Amer) BUN/Creatinine Ratio (10-20) Glucose (70-99) mg/dl Calcium (8.5-10.1) mg/dl CSF Appearance Clear CSF Color Colorless Xanthrochromic No xanthochromia CSF WBC 0 (0-5) /uL CSF RBC 7 (0-) /uL CSF Cell Count Tube # 3 CSF Chemistry Tube # CSF Glucose (40-70) mg/dl CSF Total Protein (15-45) mg/dl PG Care Time/CCT Total # of Minutes Spent Total Time Spent with Patient: Total time spent is greater than 50% in coordination of care (as documented) at patient's floor/unit and/or counseling patient: Coding Level of Care Code 34807 Subseq Hosp Care Lvl 3 Diagnoses Headache R51 Headache chronicity pattern: unspecified pattern Headache type: unspecified Intractability: intractable Blurred vision H53.8 Intracranial hypertension G93.2 (1) Headache Headache chronicity pattern: unspecified pattern Headache type: unspecified Intractability: intractable Qualified Code(s): R51 - Headache
[2019-07-17 12:56] LABS: Magnesium 2.7 mg/dl (1.8-2.4); Phosphorus 3.3 mg/dl (2.5-4.9)
--- NOTE | 2019-07-17 18:06 | Electrocardiogram Report ---
Test Reason : Blood Pressure : / mmHG Vent. Rate : 083 BPM Atrial Rate : 083 BPM P-R Int : 164 ms QRS Dur : 096 ms QT Int : 376 ms P-R-T Axes : 044 053 056 degrees QTc Int : 441 ms Normal sinus rhythm Normal ECG No previous ECGs available Confirmed by Carlos Lazo [id number]) on 07/17/2019 6:05:33 PM Referred By: REFERRED SELF Confirmed By:Vasyl Lazo
[2019-07-17 19:42] LABS: Amphetamines+Metham, Urine Neg (Neg); Barbiturates, Urine Neg (Neg); Benzodiazepine, Urine Neg (Neg); Cocaine, Urine Neg (Neg); MDMA (Ecstacy), Urine Neg (Neg); Methadone, Urine Neg (Neg); Opiate, Urine Neg (Neg); Phencyclidine, Urine Neg (Neg)
[2019-07-17] MEDS: OLANZAPINE 2.5 MG TAB PO SCH (21:43)
[2019-07-18] MEDS: METOCLOPRAMIDE HCL INJ 5 MG/ML 2 ML VIAL IV SCH (02:03)
[2019-07-18] MEDS: DIHYDROERGOTAMINE MESYLATE 1 MG/ML VIAL IM SCH (02:04)
[2019-07-18 07:12] LABS: BUN Creatinine Ratio 14.9 (10-20); Calcium 9.3 mg/dl (8.5-10.1); Creatinine Clr Calc Pharmacy 76.6 ml/min; Est GFR (African American) 74.8; Est GFR (Non-African American) 64.5
--- NOTE | 2019-07-18 08:42 | Neurology Progress Note ---
Date of Service July 18, 2019 Assessment & Plan (1) Chronic migraine: Sharona Wright is a 48-year-old woman with past medical history of migraines, IIH and obesity who presents to [facility] with worsening headaches. # IIH: Her opening pressure is at the upper limit of normal, however she had the pressure taken while lying on her stomach instead of the left lateral decubitus position which could slightly elevate her pressure. She does have optic disc edema on examination in the right eye (nasal field), so cannot 100% rule out active IIH at this time. One thing that speaks against IIH as the cause of her headaches at this time is that there was no improvement in symptoms with the LP (was not therapeutic despite >10cc of CSF taken off) - follow up outpatient with ophtho for formal visual field testing - recommend repeating LP as an outpatient in ~1 week. If greater than 25 cm H2O, she would require neurosurgical evaluation as she has max'ed out on medical therapy for IIH at that time (other than weight loss and low salt diet). - continue diamox 1000mg bid, topamax 25mg/75mg - referral to [facility] neurosurgery to discuss possible shunt for IIH if elevated pressure confirmed on repeat LP (she reports being told in the past that she sh ould consider a shunt but deferred at that time) #Chronic migraine complicated by medication overuse headache: This appears to be the more likely diagnosis for her presentation given that she is taking Tylenol, ibuprofen or Excedrin Migraine [id number] for at least the last month. Baseline EKG normal. UDS negative. Mg 2.7 (mildly high), Phos WNL. CSF unremarkable (no signs of infection or ICH). Has received 3 doses of DHE with only minimal transient improvement of headache noted before pain returns. - recommend discharge home to continue treatment for MOH there - would avoid steroids given concern for possible IIH - start venlafaxine 37.5mg daily, goal to increase up to 75mg daily (as tolerated) for migraine prevention. Would also recommend starting magnesium 400mg daily for migraine prevention. -complete Zyprexa 2.5 mg nightly x5 days cycle breaker (continue on discharge, currently d2/5) - script for imitrex (8 tabs), to be used no more than 3 times per week for severe headaches - long discussion with patient about MOH and the ramifications of MOH (greater than 25 minutes spent at pt bedside discussing plan going forward), including that this can take several months to recover from given severity of her current headache and the duration that she has had them already. - she can follow up with us in the neurology clinic for her migraines if pt is interested - would obtain CTA head and neck to rule out any vessel abnormality c/w RCVS (however, headache semiology is not thunderclap) Headache lifestyle changes that are recommended (please include in pt discharge instructions): "The following lifestyle changes are recommended for all people with headaches: 1) Consistent sleep. Aim to sleep 7-9 hours per night with a consistent bedtime throughout the week. 2) Aim for 3 meals and several snacks throughout the day. Ensure hydration with a goal of 64-80 ounces of water daily. 3) Avoid excess caffeine intake. This includes limiting coffee, caffeinated tea, chocolates and other food items that contain caffeine. Coffee should be limited to no more than one regular cup per day. 4) Daily exercise for 20-30 minutes. This can be walking, biking, jogging or any other aerobic exercise that you enjoy. 5) Some patients find taking a supplement can help with their headaches. Magnesium citrate or oxide 200-500 mg daily may help (main side effect is loose stools). Riboflavin 400 mg daily can also be taken (main side effect is yellow urine)." Thank you for this interesting consult. Plan of care discussed with primary team on 3 separate occasions today. Please call or text with any questions. (2) Intracranial hypertension: (3) Medication overuse headache: Subjective NAEs overnight. Reports that she still has a headache this morning that has ranged from 7-10/10 in severity. Could not sit up for breakfast earlier in the morning due to severity of headache and preferred lying down instead. Does not think that the DHE has been beneficial as her headache actually got worse today. Review of Systems Review of Systems: 14 point review of systems completed and negative except as in HPI. Physical Exam Physical Exam: General Exam: GEN: NAD, lying in bed. HEENT: No conjunctival injection, no rhinorrhea. CV: RRR, no peripheral edema PULM: Nonlabored respirations on room air. Neuro Exam: MS: Awake and Alert. Oriented to person, place, and date. Speech fluent and appropriate without dysarthria or paraphasic errors. Language intact including naming, comprehension, repetition. Cognition and memory grossly intact. Attention intact. No neglect. CN: Visual del cid full. No extinction to double simultaneous stimuli. + optic disc edema on fundoscopic exam. PERRLA OU. EOMI without nystagmus. Facial sensation intact to LT. Facial muscles full and symmetric. Hearing intact to conversation. Uvula midline with symmetric palatal elevation. Shoulder shrug normal. Tongue midline. MOTOR: Normal bulk and tone. No pronator drift. BUE strength 5/5 at deltoids, biceps, triceps, wrist flexors and extensors, and hand grasp bilaterally. BLE strength 5/5 at iliopsoas, hamstrings, quadriceps, tibialis anterior, and gastrocnemius bilaterally. REFLEXES: 2+ at biceps, triceps, brachioradialis, patella and Achilles bilaterally. Flexor plantar responses bilaterally. SENSORY: Intact to LT without extinction to double simultaneous stimuli. Vibration and pinprick intact throughout. COORDINATION: No dysmetria or ataxia on [id number]-jqzj and atcn-fd-ccsn bilaterally. Normal Mery bilaterally. GAIT: Deferred given physical status Results & Data Vital Signs (Past 12 Hours) Vital Signs Temp Pulse Resp BP Pulse Ox 07/18/19 07:22 36.7 C 70 18 103/63 93 07/17/19 23:00 36.7 C 55 L 18 112/78 96 PG Care Time/CCT Total # of Minutes Spent Total Time Spent with Patient: Total time spent is greater than 75 minutes with 50% in coordination of care (as documented) at patient's floor/unit and/or counseling patient noted as above. Coding Level of Care Code 63512 Subseq Hosp Care Lvl 3 Diagnoses Chronic migraine G43.709 Intracranial hypertension G93.2 Medication overuse headache G44.40
[2019-07-18] MEDS: TOPIRAMATE 25 MG TAB PO SCH (08:59)
[2019-07-18] MEDS: acetaZOLAMIDE 500 MG CAPCR PO SCH (08:59)
[2019-07-18] MEDS ORDERED: DiphenhydrAMINE HCL 50 MG/ML VIAL IV STA (09:04)
[2019-07-18] MEDS ORDERED: KETOROLAC 30 MG/ML VIAL IV ONE (09:04)
[2019-07-18] MEDS ORDERED: METOCLOPRAMIDE HCL INJ 5 MG/ML 2 ML VIAL IV ONE (09:05)
[2019-07-18] MEDS ORDERED: OPTIRAY 320 125ml IV PRN (10:47)
--- NOTE | 2019-07-18 11:04 | CT Scan Report ---
CT angio head wo/w HISTORY: Mental status change headache TECHNIQUE: Multiaxial CT angiography of the head was performed IV contrast: None. Maximum intensit y projection images were also obtained. A dose lowering technique was utilized adhering to the princ iplReg. COMPARISON: None. FINDINGS: There is no mass, hematoma, midline shift, or acute infarct. Visualized intracranial actuarial intern al carotid arteries, distal vertebral arteries, and basilar artery are widely patent. There is no sig nificant stenosis, occlusion, or aneurysm seen within the bilateral ACAs, MCAs, or air/ocean export clerk. IMPRESSION: No significant stenosis, occlusion, or aneurysm within the [place]. ACT 112: Negative or not required by law. The above report was generated using voice recognition software. It may contain grammatical, syntax or spelling errors. Electronically signed by: Hardik Charles M.D. 07/18/2019 11:02 AM
--- NOTE | 2019-07-18 11:06 | CT Scan Report ---
CT angio neck with con HISTORY: Headache headache TECHNIQUE: Multiaxial CT angiography of the neck was performed IV contrast: None. All measurements w ere calculated based on NASCET criteria. Maximum intensity projection images were also obtained. A dose lowering technique was utilized adhering to the principles of ALARA. COMPARISON STUDY: None. FINDINGS: The aortic arch and proximal great vessels are widely patent. There is no significant sten osis, occlusion, or dissection identified within the bilateral common carotid, internal carotid, or v ertebral arteries. IMPRESSION: No significant stenosis, occlusion, or dissection identified within the carotid or vertebral arteries . ACT 112: Negative or not required by law. The above report was generated using voice recognition software. It may contain grammatical, syntax or spelling errors. Electronically signed by: Hardik Charles M.D. 07/18/2019 11:05 AM
[2019-07-18] MEDS ORDERED: VENLAFAXINE HCL XR 37.5 MG CAPXR PO SCH (12:15)
--- NOTE | 2019-07-18 15:32 | Discharge Summary ---
Date of Service July 18, 2019 Admission HPI Per Admitting Provider Sharona Wright is a 48-year-old female with history of idiopathic intracranial hypertension diagnosed 2 years ago presenting with 5 days of severe, persistent headache. Patient reports that she has a headache almost daily. She also has a small blind spot in the right eye which is residual defect from her initial presentation of IIH. Over the last 5 days, however, she reports severe 10 out of 10 constant aching pain located in her posterior neck radiating bandlike to the top of her head and behind her eyes. Blurry vision in her right eye headache wakes her from sleep on occasion. Pain is worse with lying flat. She saw her PCP yesterday and was administered Toradol and she has been taking Advil PM with minimal relief. She denies nausea/vomiting/fevers/chills/trauma. Denies numbness/tingling/we akness. No additional complaints at this time Patient presently following with Dr. Mac of neurology ER course: Tylenol 1 g, Benadryl 50 mg IV, Toradol 30 mg IV, Ativan 0.5 mg IV, magnesium sulfate x1 g IV, prochlorperazine 10 mg IV, normal saline x1 L Neurology contactedrequested MRI with and without contrast, MRV, ophthalmology consultation and lumbar puncture Admission Exam Per Admitting Provider General: patient resting in moderate discomfort but no acute distress,non-toxic in appearance, AA&O x 4 Skin: warm, dry, intact, no rashes or lesions HEENT: NC/AT, PERRL, EOMI, anicteric sclera, conjunctiva without injection, external ear normal to inspection and nontender, nares patent, moist mucus membranes, dentition intact, no oropharyngeal lesions, neck supple, trachea midline, no LAD, no thyromegaly, no JVD, no papilledema appreciated on limited bedside funduscopic exam Heart: +S1/S2, regular, no m/r/g Lungs: equal air entry bilaterally, no rales/rhonchi/wheezes Abd: +BS, soft, NT/ND, no masses/organomegaly/ascites Ext: warm, 2+ pulses in UE/LE bilaterally, no clubbing/cyanosis, vascular hypertrophy of left calf in comparison with right (baseline per patient), no edema Neuro: nonfocal, patient AA&O x 4, speech intact, no facial droop, moving all extremities on command with equal strength 5/5 Principal Diagnosis Chronic Migraine/Medication Overuse Headache Discharge Exam General: Moderate distress related to headache. HEENT: NC/AT; PERRLA with EOMI; [place] conjunctiva, MMM. No erythema of posterior pharynx Neck: Supple and nontender Cardiac: RRR Lungs: CTA bilaterally Abdomen: Bowel normoactive X 4; Nontender to palpation Extremities: Warm. No edema present Neuro: No focal weakness Skin: No rash Discharge Data Allergies Allergy/AdvReac Type Severity Reaction Status Date / Time No Known Allergies Allergy Unverified 07/15/19 15:50 Consultations 07/15/19 16:57 ED Decision to Admit Stat 07/15/19 20:13 Consult Neurology Routine Consult Ophthalmology Routine Ordered Studies 07/15/19 14:08 CT head/brain wo con Stat 07/15/19 16:57 MR brain wo/w con Stat MR venography head wo con Stat 07/16/19 13:30 FL lumbar puncture diagnostic Routine 07/18/19 09:21 CT angio head wo/w Urgent CT angio neck with con Urgent Hospital Course (1) Headache: Presented with headache with history of idiopathic intracranial hypertension -- concern for migraine vs. worsening IH vs. tension headache. MRI and MRV were both negative. CTA of head and neck were negative. S/p LP on 07/16, opening pressure was 25 cm (?accuracy due to position during procedure); CSF results negative (prelim) Urine drug screen was ordered but not collected. Ophthalmology consulted, had mild disc edema on right side. Will need to follow up as outpatient with Dr. Bolden. Neuro consulted, appreciate input. Headache is likely related to medication overuse. Continued home Topamax 75 mg qhs, 25 mg qAM; continued home Diamox 1000 mg BID. Received DHE protocol, 3 mg subQ total, from 07/17-07/18; EKG was negative for evidence of ischemia/prior IL. Did not have improvement in headache following completion. Zyprexa 2.5 mg qhs x 5 days. Received Toradol/Reglan/Benadryl q8hr and Depakote IV q8hr x 24 hours with no improvement with scheduled meds. Added Effexor XR 37.5 mg daily on day of discharge; pt. did have episode of vomiting following dose; encouraged her to take medication at home as tolerated daily. Patient had ongoing headache on day of discharge; received additional dose of Toradol/Reglan/Benadryl with no improvement. Multiple providers discussed the course of medication overuse headaches, including how it may require a period of time until headaches improve. Her mother was present at bedside and was informed of condition/treatment/prognosis. DISCHARGE: Advised to AVOID COMPLETE USE OF TYLENOL AND IBUPROFEN CONTAINING PRODUCTS. F/u with ophthalmology for visual field testing. F/u with [facility] neurology in 2-3 weeks. Will need LP in 1 week in left lateral decubitus position, evaluate for opening pressure. Will need referral to [facility] neurosurgery as outpatient. Will discuss with nurse navigator on Friday. Sent scripts for Effexor, Zyprexa to pharmacy. Imitrex 20 mg nasal spray -- 20 mg dose followed by repeat dose in 2 hours if no improvement. Provided #6 doses. (2) Blurred vision: Likely related to issue as noted above, now improving. (3) Intracranial hypertension: Continued Diamox and Topamax as prescribed. Ophthalmology and neurology consulted. (4) Metabolic acidosis: Noted on labs throughout admission. Provided script for follow up labs in 2 days to monitor for improvement. Continue Diamox at this time -- consider adjusting medication if no improvement. Discharged to home on 07/18/19. Total Time Total Time Spent Total Time Spent (In Minutes): >30 minutes Total Time Includes: Examination of the Patient, Discharge Planning, Medication Reconciliation, Communication With Other Providers and Other Discharge Plan Discharge Items Patient Disposition: Home - Self-Care Reason For Visit: IIH,SEV[place] MANZO Discharge Diagnosis: Headache, Idiopathic Intracranial Hypertension Condition on Discharge: Fair Activity: As commented below Exercise/Sports: Wait until after follow-up appointment Non-emergency contact: Primary Care Provider and Neurologist Call non-emergency contact if: you have any medication questions, your symptoms worsen and you have a fever Follow-up/Referrals: PCP,NO [Primary Care Provider] - Diet: Regular Ambulatory Orders: Comprehensive Metabolic Panel (Routine) Timeframe: 2 Days Location: Determined by Patient Ordered By: Whit Weiner Attending Provider Instructions: 1. Headache * Likely related to medication overuse at home (use of Tylenol and Ibuprofen) * Please continue home Diamox and Topamax as prescribed. * Please take Effexor ER 37.5 mg daily. * Please take Zyprexa 2.5 mg at bedtime x 3 days. * You will need a lumbar puncture in 1 week -- this will be arranged by Friday or Friday. * You will need to follow up with [facility] neurosurgery - this will be arranged within the next few days. * Please schedule an appointment with Dr. Bolden, general utility maintenance repairer, for visual field testing. * Please schedule appointment with our neurology team, Dr. Espitia, in 2-3 weeks. * Prescription was provided for Imitrex tablets -- please take as needed for migraines at home per instructions. * AVOID USE OF TYLENOL OR IBUPROFEN AT HOME - use of these medications will lead to rebound headaches. 2. Abnormal labs * Please have follow up labs collected on Friday - results will be faxed to your primary care provider for evaluation. Pending Studies at Discharge: No Stand-Alone Forms: My [facility] [employer], Work/School Release (Inpt) Medications and DC Order Prescriptions: New diphenhydramine HCl [Benadryl] 25 mg Capsule 25 mg PO Q6H PRN (Reason: headache) 1 Days Qty: 1 RF: 0 olanzapine 2.5 mg Tablet 2.5 mg PO HS Qty: 3 RF: 0 venlafaxine 37.5 mg Capsule,Extended Release 24hr 37.5 mg PO QAM Qty: 30 RF: 2 sumatriptan [Imitrex] 20 mg/actuation spray,non-aerosol 20 mg INTNAS Q2H PRN (Reason: migraine headache) Qty: 6 RF: 0 Continued multivitamin Tablet 1 tab PO DAILY RF: 0 topiramate [Topamax] 25 mg Tablet 75 mg PO HS RF: 0 topiramate [Topamax] 25 mg Tablet 25 mg PO QAM RF: 0 Diamox 1,000 mg PO BID RF: 0 Discontinued ibuprofen-diphenhydramine cit [Advil PM] 200-38 mg Tablet 2 cap PO HS PRN (Reason: Sleep) RF: 0 Discharge Orders: Discharge Order (Routine); Ordered 07/18/19 Ordered By: Whit Palmer Admission Data Admit Date/Time: 07/15/19 17:52 Attending Provider: Armando Sweet Admit Provider: Oliver,Annalisa M Primary Care Provider: PCP,NO Other Providers: Annalisa Boyd ; Alejandrina Espitia ; Rudy Bolden Other Interventions: Discharge Summary Assessment (RN) Last Done: 07/18/19 13:37 DC Date/Time DO NOT enter until pt leaves facility: 07/18/19 15:41 Supervising Physician Co-Signing Physician Notes Patient seen and examined on the day of discharge. I agree with the discharge summary by Whit JIMENEZ. I have reviewed the chart including labs, im aging and plans for discharge. patient still with headache, moderate to severe at times discussed plan for discharge, should get repeat LP, follow up with [facility] [place] discussed with Dr. Epsitia, appreciate her input - Intracranial pressure headaches: already maxed out on Diamox patient needs to have repeat LP because the one that was done here in hospital was in prone position, should be lateral recumbant also, will need follow up with opthomology ultimately should follow up with [facility] neurosurgery - Rebound headaches, possible migraine patient taking Tylenol, Excedrin, Motrin every day for a month will try to break the cycle using Effexor and Zyprexa can use Imitrex as needed patient should be off of work the next week Coding Level of Care Code D/C Day Management >30 mins Diagnoses Headache R51 Headache chronicity pattern: unspecified pattern Headache type: unspecified Intractability: intractable Blurred vision H53.8 Intracranial hypertension G93.2 Metabolic acidosis E87.2
== END 2019-07-18 15:41 | disposition home or self-care (01) ==
LOC: ED 13:03 → 4W 13:03 → SUATTDRO 17:52 → 4W 19:21